=== PATIENT | female | born 1975 | race Caucasian/White ===

== ENCOUNTER 2025-01-30 06:05 | Inpatient (IN) | payer OTHER ==
[~2025-01-30] VITALS: Ht 165.1 cm; Wt 75.8 kg
[2025-01-30] MEDS ORDERED: NS 1,000 ML IV SCH ×3 (06:20→15:50)
[2025-01-30] MEDS ORDERED: Diazepam 5 MG / ML 2ML SYR IV ONE (06:20)
[2025-01-30 06:33] LABS: BASOPHILS ABSOLUTE AUTO 0.03 K/mm3 (0.00-0.23); BASOPHILS PERCENT AUTO 0 % (0-2); EOSINOPHILS ABSOLUTE AUTO 0.35 K/mm3 (0.00-0.68); EOSINOPHILS PERCENT AUTO 5 % (0-6); Hematocrit 41.1 % (33.0-51.0); Hemoglobin 13.6 g/dL (11.5-16.0); IMMATURE GRAN ABSOLUTE AUTO 0.05 K/mm3 (0.00-0.10); IMMATURE GRAN PERCENT AUTO 1 % (0-1); LYMPHOCYTES ABSOLUTE AUTO 1.46 K/mm3 (0.84-5.20); LYMPHOCYTES PERCENT AUTO 19 % (21-46); MONOCYTES ABSOLUTE AUTO 0.51 K/mm3 (0.16-1.47); MONOCYTES PERCENT AUTO 7 % (4-13); Mean Corpuscular HGB Conc 33.1 g/dL (31.5-36.5); Mean Corpuscular Volume 91 fL (80-100); NEUTROPHILS ABSOLUTE AUTO 5.33 K/mm3 (1.96-9.15); NEUTROPHILS PERCENT AUTO 69 % (41-73); NRBC ABSOLUTE 0.00 K/mm3 (0.00-0.02); NRBC Auto 0.0 /100 WBC (0.0-0.2); Platelet Count 220 K/mm3 (150-400); RDW Coefficient Variation 13.8 % (11.7-14.2); RDW Standard Deviation 46.2 fL (35.1-46.3)
[2025-01-30 06:53] LABS: Alanine Aminotransfer (ALT/SGP 14 U/L (12-78); Albumin, Blood 3.4 g/dL (3.4-5.0); Albumin/Globulin Ratio 1.0 (0.8-1.8); Anion Gap 9 mmol/L (3-11); Aspartate Aminotrans (AST/SGOT 10 U/L (12-37); Bilirubin, Total 0.4 mg/dL (0.1-1.0); Blood Urea Nitrogen 10 mg/dL (8-24); CO2, Blood 26 mmol/L (21-32); Calcium, Blood 8.9 mg/dL (8.5-10.1); Chloride, Blood 106 mmol/L (98-108); Creatinine, Blood 1.00 mg/dL (0.40-1.00); Ethanol (Alcohol), Blood, Med <3 mg/dL; Globulin, Blood 3.4 g/dL (2.2-4.0); Glucose, Blood 107 mg/dL (70-99); Potassium, Blood 3.7 mmol/L (3.5-5.5); Sodium, Blood 137 mmol/L (136-145); Total Protein, Blood 6.8 g/dL (6.4-8.2)
[2025-01-30] MEDS ORDERED: Magnesium Sulf 2 GM/Water 50ML 50 ML IV ONE (07:10)
[2025-01-30 09:57] LABS: U Amphetamine Screen Not Detected; U Barbituate Screen Not Detected; U Benzodiazapine Screen DETECTED; U Buprenorphine Screen Not Detected; U Cannabinoids Screen Not Detected; U Cocaine Screen Not Detected; U Methadone Screen Not Detected; U Methamphetamine Screen Not Detected; U Opiates Screen Not Detected; U Oxycodone Screen Not Detected; U Phencyclidine Screen Not Detected
[2025-01-30] MEDS ORDERED: Lidocaine 2% Jelly Uro-Jet TOP ONE (10:00)
[2025-01-30] MEDS ORDERED: Lidocaine HCl 4% 5 ML SDA INH ONE (10:05)
[2025-01-30] MEDS ORDERED: DILTIAZEM 24HR120 M4 PO (11:36)
[2025-01-30] MEDS ORDERED: FLUTICASONE-SA1 EAC9 INH (11:37)
[2025-01-30] MEDS ORDERED: NICORETTE4 M1 BC (11:39)
[2025-01-30] MEDS ORDERED: NICO21TP TOP (11:39)
[2025-01-30] MEDS ORDERED: QUET200 PO (11:41)
[2025-01-30] MEDS ORDERED: LITH300C PO (11:41)
[2025-01-30] MEDS ORDERED: PANTOPRAZOLE SO2010 PO (11:42)
[2025-01-30] MEDS ORDERED: ESTRADIOL (TWI1 EAC2 TD (11:43)
[2025-01-30] MEDS ORDERED: HYDPAM50 PO (11:44)
[2025-01-30] MEDS ORDERED: LOSARTAN POTASS25 M2 PO (11:45)
[2025-01-30] MEDS ORDERED: KLOR-CON 1010 ME9 PO (11:45)
[2025-01-30] MEDS ORDERED: TAMSULOSIN HCL0.4 M1 PO (11:46)
[2025-01-30] MEDS ORDERED: LEVETIRACETAM50014 PO (11:53)
[2025-01-30] MEDS ORDERED: Diazepam 5 MG / ML 2ML SYR IV PRN ×4 (12:05→12:10)
[2025-01-30] MEDS ORDERED: ROPINIROLE HCL1 MG PO (12:12)
[2025-01-30] MEDS ORDERED: PRAZOSIN HCL1 M2 PO (12:12)
[2025-01-30] MEDS ORDERED: ALBU90OI6 INH (12:13)
[2025-01-30] MEDS ORDERED: CYMBALTA20 M2 PO (12:13)
[2025-01-30] MEDS ORDERED: XARELTO20 M1 PO (12:14)
[2025-01-30] MEDS ORDERED: ACET500 PO (12:15)
[2025-01-30] MEDS ORDERED: TUMS500 MG PO (12:15)
[2025-01-30] MEDS ORDERED: CHLO25 PO (12:16)
[2025-01-30] MEDS ORDERED: FOLI1 PO (12:18)
[2025-01-30] MEDS ORDERED: CATAPRES0.1 MG PO (12:18)
[2025-01-30] MEDS ORDERED: GABA300 PO (12:20)
[2025-01-30] MEDS ORDERED: MELATONIN5 M1 PO (12:20)
[2025-01-30] MEDS ORDERED: ONDA4 PO (12:21)
[2025-01-30] MEDS ORDERED: METO25 PO (12:21)
[2025-01-30] MEDS ORDERED: B-1100 M1 PO (12:22)
[2025-01-30] MEDS ORDERED: TRAZ50 PO (12:22)
[2025-01-30] MEDS ORDERED: PROM25 PO (12:22)
[2025-01-30 12:24] VITALS: BP 112/84
--- NOTE | 2025-01-30 12:33 | NUR ---
PT ARRIVED TO UNIT AT APROX 1215 FROM ER. PT CIWA 5 UPON ARRIVAL TO UNIT. PT HAS NGT-PLACED TO LIS, SMALL AMT GREEN LIQUID OUT. LUNA PATENT , DRAINING CLEAR YELLOW URINE. PT IS ALERT, ORIENTED TO PLACE, SELF, EVENT-UNSURE OF YEAR AND DIFFICULTY RECALLING REASON FOR ADMISSION, UNABLE TO RECALL PLAN OF CARE. VSS UPON ARRIVAL TO UNIT. REPORT GIVEN TO PRIMARY RN.
--- NOTE | 2025-01-30 13:53 | NUR ---
pt remains confused but redirectable. pt was grabbing at her catheter tubing. educated on what it is for and pt was redirectable.
--- NOTE | 2025-01-30 14:19 | NUR ---
notified dr. russ of prolonged qtc per tele. no new orders at this time, pt resting in bed, denies cp.
[2025-01-30 14:30] VITALS: BP 109/83
--- NOTE | 2025-01-30 14:43 | NUR ---
VERBAL AUTH FROM PT TO RELEASE INFORMATION TO [facility]. UPDATE GIVEN TO KRUNAL @ [facility] DETOX.
[2025-01-30 16:03] VITALS: BP 105/77
[2025-01-30 16:04] VITALS: BP 105/77
--- NOTE | 2025-01-30 16:04 | NUR ---
while assessing patient she continues to feel like she is hearing things she stated that "He invited me to the [facility] party but never came to pick me up." I asked her who and she stated "the man in the [employer] just now." pt reports it is february [id number]. Call Dr. Herrera earlier to request iv fluids to start on patient awaiting orders at this time. pt conintues to score high on ciwas ranging from 20-15. she remains pleasant and can be redirected but has grabbed at her ngt and her schafer cath. bed alarm is on and seizure precautions in place. she reports previous seizures with some withdrawls.
--- NOTE | 2025-01-30 17:10 | NUR ---
PT CONTINUES TO SCORE HIGH ON THE CIWA'S MEDICATION PER EMAR. NEEDS FREQUENT REDIRECTION ABOUT REMAINING NPO AND THE REASON FOR THE TUBE IN HER NOSE. VERY FORGETFUL. REMAINS REDIRECTABLE AND PLEASANT. POWERGLIDE PLACED AT THIS TIME. FOLIC ACID AND THIAMINE STARTED
[2025-01-30 20:42] VITALS: BP 117/82
--- NOTE | 2025-01-30 20:59 | NUR ---
CIWA SCALE WAS COMPLETED BY VIDEO CLERK PRN
[2025-01-31] VITALS (19 sets, daily range): BP systolic 108–160; BP diastolic 90–125
--- NOTE | 2025-01-31 00:52 | NUR ---
CALL TO PROVIDER AFTER SPEAKING TO CHARGE NURSE REGARDING PT CIWA SCORES. PROVIDER WITH VERBAL ORDER TO TRANSFER TO PCU/ICU.
--- NOTE | 2025-01-31 01:16 | NUR ---
[facility] WAS WAITING AT THE DESK THIS RN SPOKE TO HIM. I EXPLAINED THAT THE PATIENT CAME TO THE FLOOR WITH ELEVATED CIWAS, AND THAT SHE VERY QUICKLY FALLS ASLEEP AFTER BEING MEDICATED. WHEN THE PATIENT IS AWAKE, HER CIWAS ARE >15. BABAK UPDATED THAT THIS HAS HAPPENED A FEW TIMES OVER. HE STATED THAT IF THE PATIENTS CIWAS REMAIN ELEVATED THIS EVENING, THAT HE WOULD PREFER A TRANSFER. 0000 CIWA SCORED AT 16, PT BEING MEDICATED BY QUINCY CRAWFORD.
--- NOTE | 2025-01-31 01:59 | NUR ---
REPORT TO TY PARIS AT [facility].
--- NOTE | 2025-01-31 02:13 | NUR ---
PT TO PCU 11 WITH STAFF
[2025-01-31 04:29] LABS: BASOPHILS ABSOLUTE AUTO 0.01 K/mm3 (0.00-0.23); BASOPHILS PERCENT AUTO 0 % (0-2); EOSINOPHILS ABSOLUTE AUTO 0.29 K/mm3 (0.00-0.68); EOSINOPHILS PERCENT AUTO 7 % (0-6); Hematocrit 35.1 % (33.0-51.0); Hemoglobin 11.3 g/dL (11.5-16.0); IMMATURE GRAN ABSOLUTE AUTO 0.01 K/mm3 (0.00-0.10); IMMATURE GRAN PERCENT AUTO 0 % (0-1); LYMPHOCYTES ABSOLUTE AUTO 0.94 K/mm3 (0.84-5.20); LYMPHOCYTES PERCENT AUTO 23 % (21-46); MONOCYTES ABSOLUTE AUTO 0.29 K/mm3 (0.16-1.47); MONOCYTES PERCENT AUTO 7 % (4-13); Mean Corpuscular HGB Conc 32.2 g/dL (31.5-36.5); Mean Corpuscular Volume 91 fL (80-100); NEUTROPHILS ABSOLUTE AUTO 2.47 K/mm3 (1.96-9.15); NEUTROPHILS PERCENT AUTO 62 % (41-73); NRBC ABSOLUTE 0.00 K/mm3 (0.00-0.02); NRBC Auto 0.0 /100 WBC (0.0-0.2); Platelet Count 177 K/mm3 (150-400); RDW Coefficient Variation 13.6 % (11.7-14.2); RDW Standard Deviation 45.0 fL (35.1-46.3)
[2025-01-31 04:49] LABS: Alanine Aminotransfer (ALT/SGP 11.0 U/L (12-78); Albumin, Blood 2.8 g/dL (3.4-5.0); Albumin/Globulin Ratio 1.0 (0.8-1.8); Anion Gap 5.0 mmol/L (3-11); Aspartate Aminotrans (AST/SGOT 10.0 U/L (12-37); Bilirubin, Total 0.4 mg/dL (0.1-1.0); Blood Urea Nitrogen 7.0 mg/dL (8-24); CO2, Blood 27.0 mmol/L (21-32); Calcium, Blood 8.0 mg/dL (8.5-10.1); Chloride, Blood 115.0 mmol/L (98-108); Creatinine, Blood 0.84 mg/dL (0.40-1.00); Globulin, Blood 2.8 g/dL (2.2-4.0); Glucose, Blood 82.0 mg/dL (70-99); Magnesium, Blood 2.2 mg/dL (1.6-2.4); Phosphorus, Blood 3.3 mg/dL (2.5-4.9); Potassium, Blood 3.6 mmol/L (3.5-5.5); Sodium, Blood 143.0 mmol/L (136-145); Total Protein, Blood 5.6 g/dL (6.4-8.2)
--- NOTE | 2025-01-31 05:57 | NUR ---
SHIFT SUMMARY. PATIENT TRANSFERED TO [facility] FROM [facility] FOR CIWA >15. PATIENT ARRIVED TO ROOM, DROWSY BUT EASILY AROUSABLE. PATIENT IS CONFUSED BUT ATTEMPTS TO ANSWER ORIENTATION QUESTIONS. PATIENT IS ANXIOUS-CIWA SCORES 15-16 THIS SHIFT, PATIENT IS NPO ON BOWEL REST WITH NG TUBE TO RIGHT NOSTRIL WITH LOW INTERMITTENT SUCTION DRAINING GREEN BILE-PATIENT TO HAVE PROCEDURE TODAY PER [facility] SURGEON TO SEE IF PATIENT WILL REQUIRE TRANSPORT TO [facility] FOR HIGHER LEVEL OF CARE-PER REPORT FROM SURGICAL NURSE PATIENT HAS A BED BUT WILL NEED TO KNOW IF PATIENT CHANGES TO ICU STATUS TO ACCOMODATE BED FOR ICU TRANSFER, PATIENT HAS BED JUST WAITING FOR RESULTS FROM TODAYS TEST FOR PLAN OF CARE. PATIENT HAS RIGHT UPPER ARM POWERGLIDE THAT FLUSHES AND DRAWS WITH EASE. PATIENT HAVING SOME HALLUCINATIONS, THINKING "BOYFRIEND IS IN THE HOSPITAL AND THAT SHE TALKED ON THE PHONE WITH WINNIE MANCILLA". PATIENT RESTING OFF AND ON T/O NIGHT-VERY ANXIOUS T/O NIGHT WHEN AWAKE. PATIENT ASKS SEVERAL TIMES FOR PURSE-PURSE IS AT [facility]-CALLED AND CONFIRMED WITH [facility] BY BRIA CRAWFORD. PATIENT MEDICATED WITH VALLIUM PER ORDERS FOR CIWA SCORE >15. PATIENTS BED IS LOCKED IN THE LOWEST POSITION WITH CALL LIGHT IN REACH. CARE IS ONGOING.
[2025-01-31] MEDS ORDERED: D5W-1/2NS 1,000 ML IV SCH ×2 (07:00→20:00)
[2025-01-31] MEDS ORDERED: Ondansetron HCl 2 MG / ML 2ML Vial IV PRN (08:40)
--- NOTE | 2025-01-31 10:31 | NUR ---
AM NOTE: ASSUMED CARE OF PT THIS AM AFTER RECEIVING REPORT F/ TY ALANIZ AT APPROX 0715. PT IS ALERT, ORIENTED TO SELF, SOME SITUATION AND OCCASIONALLY LOCATION. PT INTERMITTENTLY BELIEVES SHE IS STILL AT [facility] (PHONE CALL TO [facility] BY THIS RN TO CONFIRM THAT HER BELONGINGS ARE STILL THERE AND THEY SHOULD BE DELIVERED TO PT's ROOM THIS AFTERNOON) OR AT THE HOSPITAL IN HER HOME TOWN ([place]). CIWAs BEING MONITORED AND PT MEDICATED PER EMAR, SEIUZURE PADS IN PLACE. PT HAS BEEN TO/FROM IMAGING DEPT FOR INITIATION OF GASTROGRAFIN STUDY, NG TUBE CURRENTLY DISCONNECTED F/SUCTION PER ONGOING STUDY. PT DENIES SOB, O2 SATS >95% ON RA. PT DENIES CP, SR ON MONITOR, RATE 70s-80s. PT DENIES NAUSEA. 1:[address] TO PREVENT PULLING OF LINES OR EXITING BED UNSUPERVISED. PT CURRENTLY RESTING QUIETLY IN BED, WILL CONTINUE TO MONITOR.
--- NOTE | 2025-01-31 18:46 | NUR ---
SHIFT SUMMARY/TRANSFER: PT's CONFUSION CONTINUES (SEE PREVIOUS NOTE), WILL TALK ABOUT WANTING TO LEAVE, REQUESTING TO "GO ACROSS THE STREET TO SMOKE" OR "A DR PEPPER AND CHOCOLATE". PT HAS BEEN REDIRECTABLE UP UNTIL APPROXIMATELY THE LAST HOUR AND IS NOT RESPONDING TO PRN MEDICATIONS FOR AGITATION. PT HAS BEEN STANDING UP AND PULLING AT LINES DESPITE REDIRECTION ATTEMPTS. PROVIDER NOTIFIED AND PT HAS BEEN TRANSFERED TO ICU. PT CONTINUES PENDING TRANSFER FOR HERNIA REPAIR. NGT REMAINS IN PLACE TO R NARE, LOW INT SUCTION, DRAINING GREEN LIQUID. PT WAS TOLERATING ICE CHIPS OK'd PER DR WATTS PRIOR TO ICU TRANSFER. REPORT GIVEN TO TY FREED TO ASSUME CARE OF PT.
[2025-01-31] MEDS ORDERED: Haloperidol Lactate Inj. 5 MG/ML Injection IV ONE (21:05)
[2025-01-31] MEDS ORDERED: DiphenhydrAMINE HCl 50 MG/ML 1ML Vial IV ONE (21:05)
--- NOTE | 2025-01-31 21:20 | NUR ---
MD NOTIFICATION/PT STATUS UPDATE REPORT RECEIVED FROM DAY RN. PT CALM AT BEGINING OF SHIFT AND REDIRECTABLE. SHE QUICKLY ESCALATED INTO ETOH WITHDRAWAL SYMPTOMS REQUIRING PRECEDEX GTT, VALIUM IV, ATIVAN PO. HOSPITALIST JOSE NOTIFIED OF BEHAVIOR ESCALATION AND NECESSARY MEDICATION GIVEN. ORDER RECEIVED FOR BENADRYL AND HALDOL IV WHICH WERE GIVEN. PT STATING WANTS TO LEAVE, NURSING STAFF ARE LIARS, DOING ILLEGAL BEHAVIOR AND WE ARE ALL GOING TO CORRECTION. LOCKING RESTRAINTS WERE INITIATED AFTER PT PULLING OUT OF SOFT RESTRAINTS. NOW PULLING AGAINST LOCKED RESTRAINTS. PT ALERT TO SELF ONLY, REDIRECTED CONTINUOUSLY. THRASHING IN BED, TRYING TO GET OOB. NOT CURRENTLY REDIRECTABLE. SELF D/C'D NGT. HOSPITALIST OK WITH LEAVING OUT TONIGHT AND CAN GIVE SMALL SIPS AND CHIPS. WILL CONTINUE TO MONITOR. ROOFER APPLICATOR AT BS.
[2025-02-01] VITALS (57 sets, daily range): BP systolic 102–177; BP diastolic 68–117
--- NOTE | 2025-02-01 00:52 | NUR ---
HOSPITALIST NOTIFICATION/PT STATUS UPDATE HOSPITALIST JOSE ADULT SERVICES LIBRARIAN NOTIFIED OF CHANGE IN PT RESPIRATORY STATUS. O2 REQUIREMENT INCREASED, DESATTING TO HIGH 80'S. SWITCHED TO SIMPLE MASK 12 L, 02 SAT NOT RECOVERING. ORDERS RECEIVED FOR VBG DRAW AND SWITCH TO HEATED HI-FLOW.
[2025-02-01 01:02] LABS: pH Blood Venous 7.35 (7.34-7.37)
[2025-02-01] MEDS ORDERED: Albuterol 2.5 MG/3 ML VIAL ONE (01:19)
[2025-02-01] MEDS ORDERED: Ipratropium/Albuterol SulF 2.5-0.5MG/3 ML Amp INH PRN (01:20)
[2025-02-01] MEDS ORDERED: Albuterol 2.5 MG/3 ML VIAL INH PRN (01:30)
--- NOTE | 2025-02-01 01:35 | NUR ---
HOSPITALIST JOSE UPDATED AGAIN ON RESPIRATORY STATUS, PCXR ORDERED, HEATED HI-FLOW AT 50L/70%.
--- NOTE | 2025-02-01 02:10 | NUR ---
HOSPITALIST NOTIF DR HILLIARD UPDATED ON PT STATUS. HR AT 49/50 WITH PRECEDEX AT 0.4 MCG, ADDITIONAL VALIUM 2MG DOSE GIVEN FOR BREAKTHROUGH AGITATION WHEN PRECEDEX BRIEFLY TITRATED DOWN FOR LOW HR. O2 SAT NOW 98% ON 50L/70% HEATED HI-FLOW. NO NEW ORDERS GIVEN AT THIS TIME. WILL CONTINUE TO MONITOR.
[2025-02-01] MEDS ORDERED: HydrALAZINE HCl 20 MG / ML 1ML Vial IV PRN (03:40)
--- NOTE | 2025-02-01 03:40 | NUR ---
MD NOTIFY DR HILLIARD UPDATED WITH PT BP 168/104. ORDER RECEIVED FOR HYDRALAZINE FOR SBP>180 OR DBP>120. WILL CONTINUE TO MONITOR.
[2025-02-01 03:57] LABS: BASOPHILS ABSOLUTE AUTO 0.01 K/mm3 (0.00-0.23); BASOPHILS PERCENT AUTO 0 % (0-2); EOSINOPHILS ABSOLUTE AUTO 0.24 K/mm3 (0.00-0.68); EOSINOPHILS PERCENT AUTO 5 % (0-6); Hematocrit 36.3 % (33.0-51.0); Hemoglobin 12.2 g/dL (11.5-16.0); IMMATURE GRAN ABSOLUTE AUTO 0.01 K/mm3 (0.00-0.10); IMMATURE GRAN PERCENT AUTO 0 % (0-1); LYMPHOCYTES ABSOLUTE AUTO 0.93 K/mm3 (0.84-5.20); LYMPHOCYTES PERCENT AUTO 19 % (21-46); MONOCYTES ABSOLUTE AUTO 0.29 K/mm3 (0.16-1.47); MONOCYTES PERCENT AUTO 6 % (4-13); Mean Corpuscular HGB Conc 33.6 g/dL (31.5-36.5); Mean Corpuscular Volume 90 fL (80-100); NEUTROPHILS ABSOLUTE AUTO 3.47 K/mm3 (1.96-9.15); NEUTROPHILS PERCENT AUTO 70 % (41-73); NRBC ABSOLUTE 0.00 K/mm3 (0.00-0.02); NRBC Auto 0.0 /100 WBC (0.0-0.2); Platelet Count 189 K/mm3 (150-400); RDW Coefficient Variation 13.2 % (11.7-14.2); RDW Standard Deviation 43.3 fL (35.1-46.3)
[2025-02-01 04:24] LABS: Alanine Aminotransfer (ALT/SGP 12.0 U/L (12-78); Albumin, Blood 2.8 g/dL (3.4-5.0); Albumin/Globulin Ratio 0.9 (0.8-1.8); Anion Gap 8.0 mmol/L (3-11); Aspartate Aminotrans (AST/SGOT 10.0 U/L (12-37); Bilirubin, Total 0.3 mg/dL (0.1-1.0); Blood Urea Nitrogen 5.0 mg/dL (8-24); CO2, Blood 26.0 mmol/L (21-32); Calcium, Blood 8.1 mg/dL (8.5-10.1); Chloride, Blood 112.0 mmol/L (98-108); Creatinine, Blood 0.7 mg/dL (0.40-1.00); Globulin, Blood 3.1 g/dL (2.2-4.0); Glucose, Blood 152.0 mg/dL (70-99); Potassium, Blood 3.3 mmol/L (3.5-5.5); Sodium, Blood 143.0 mmol/L (136-145); Total Protein, Blood 5.9 g/dL (6.4-8.2)
--- NOTE | 2025-02-01 04:45 | NUR ---
MD NOTIFY DR HILLIARD CALLED WITH LOW K+ 3.3 AND CONTINUED AGITATION WITH PRECEDEX GTT. ORDERS RECEIVED FOR K+ REPLACEMENT AND ZYPREXA IM DOSE X1.
--- NOTE | 2025-02-01 05:29 | NUR ---
SHIFT SUMMARY PT LABILE T/O SHIFT, ON PRECEDEX GTT, TITRATED UP AND DOWN PER CIWA SYMPTOMS, ALONG WITH BREAKTHROUGH DOSES OF VALIUM AND ONE TIME DOSES OF BENADRYL AND HALDOL WERE GIVEN. MULT ATTEMPTS OOB, RESTRAINED, REDIRECTION UNSUCCESSFUL, REMAINS CONFUSED WITH PERIODIC AUDITORY AND VISUAL HALLUCINATIONS. UPDATED T/O SHIFT, SEE PREVIOUS NOTES FOR DETAILS. DR HILLIARD UPDATED AT 0445, BP STILL HIGH, BUT PRN HYDRALAZINE PARAMETER NOT MET. VALIUM NOT EFFECTIVE LAST 2 DOSES. ORDER FOR ONE TIME ZYPREXA DOSE AND WAS GIVEN. PT MORE CALM AT THIS TIME AFTER ZYPREXA DOSE. BP 168/113, HR 84, O2 SAT 100% ON HEATED HI-FLOW NC. WILL UPDATE DAY RN WITH LATEST STATUS.
[2025-02-01] MEDS ORDERED: NS 250 ML IV PRN (09:00)
[2025-02-01] MEDS ORDERED: Diazepam 5 MG / ML 2ML SYR IV SCH (12:30)
--- NOTE | 2025-02-01 12:46 | NUR ---
PHYSICIAN NOTIFICATION / STATUS UPDATE PATIENT INITIALLY SHOWED SIGNS OF SOME IMPROVEMENT - WHILE CONFUSED WITH HIGH CIWA SCORE, PT WAS CALM, COOPERATIVE, AND AGREEABLE TO TREATMENT. AROUND 1100 PT BEHAVIORS ESCALATED - PT BECAME VERBALLY VIOLENT AND AGGRESSIVE THREATENING TO HARM RN AND BEGAN EXPERIENCING WORSENING AV HALLUCINATION. PT STRESS AND ANXIETY ALSO INCREASING. DR. MORE NOTIFIED OF BEHAVIORS DESPITE PRN ADMINISTRATION AND PRECEDEX TITRATION. DR. MORE CAME TO BEDSIDE FOR EVALUATION AND ADDITIONAL ORDERS WERE PLACED FOR VALIUM. ADDITIONAL 5MG IV VALIUM ADMINISTERED ORDERED. PT REMAINS VITALLY STABLE.
[2025-02-01 14:45] LABS: pH Blood Venous 7.41 (7.34-7.37)
--- NOTE | 2025-02-01 17:02 | NUR ---
SHIFT SUMMARY PT LIGHTLY SEDATED SINCE AROUND 1400. TEMPERATURE 97.9, VS STABLE WITH IMPROVED RESPIRATORY RATE - PT STAYED IN THE HIGH 30S-40 MOST OF THE DAY BUT IS NOW SLEEPING WITH RR OF 24/MIN. AUDIBLE SNORING, POSSIBLE KUN - 4LNC PLACED ON PT WITH ETCO2 MONITOR. PT NSR, WITH RARE TO OCCASIONAL PVC'S. PT VERBALLY CLEARED FOR CLEAR LIQUIDS BY DR. MORE. ORAL INTAKE OF APPLE JUICE AND WATER THIS SHIFT. BM X2, BROWN, LIQUID, LOOSE. 1600 ML UOP VIA LUNA CATHETER, YELLOW/HAZY. POWERGLIDE X2 ROSMERY/ARIANNA. PRECEDEX AND D51/2NS INFUSING PER OCT. SAFETY, COMFORT, HYGIENE ADDRESSED. LUNA CARE, CHG BATH, LINEN CHANGE PERFORMED.
--- NOTE | 2025-02-01 18:40 | NUR ---
STATUS UPDATE PRECEDEX DECREASED AND SUBSEQUENTLY PAUSED D/T INCREASED ECTOPY, PROLONGED QT, AND OVER-SEDATION. PT CURRENTLY MINIMALLY AROUSES TO PAINFUL STIMULI. VS OTHERWISE STABLE, COUGH/GAG INTACT, ORAL CARE PERFORMED.
--- NOTE | 2025-02-01 20:04 | NUR ---
[facility] of Care/Assessment Bedside report completed with day shift nurse. Pt asleep but arousable to minimal stimulation. No acute distress noted, VS stable, D5 1/2 NS infusing per MAR, Precedex on pause 2* sedation and increased ectopy. Currently NSR w/ occasional PVCs. Colindres in place, patent/draining. YADIRA IVs flushed, blood draw noted. Sitter at bedside. NG tube placed in left nare per order, XRAY verified, hospitalist notified.
[2025-02-01] MEDS ORDERED: Gabapentin 250 MG/5 ML ORAL SYRINGE PT SCH (21:00)
[2025-02-01] MEDS ORDERED: LevETIRAcetam 100 MG/ML 5ML ORAL SYR PT SCH (21:00)
--- NOTE | 2025-02-01 23:00 | NUR ---
PATIENT TRANSFER TO [facility] Transfer of care to EMS for transport to [facility]. Patient alert and oriented to self, VS stable, no acute distress noted. Medications given per eMAR and CIWA scale. Patient left at 2200. Personal belongings sent, walker and meds left here and in and pharmacy. SO Sriram to be notified and given Trauma ICU phone number with update on pt status.
[2025-02-02] MEDS ORDERED: DULoxetine HCL 20 MG Cap DR PO SCH (09:00)
== END 2025-02-01 22:00 | disposition short-term general hospital (02) | DRG 391 ==
LOC: ER 06:05 → SURS 06:06 → PCU 01-31 02:07 → ICUE 01-31 10:25 → PCU 01-31 10:25 → ICUE 01-31 18:46
PROVIDERS: Student in an Organized Health Care Education/Training Program; ADMIT Family Medicine
PROC: 0D9670Z Drainage of Stomach with Drainage Device, Via Natural or Artificial Opening (ICD-10-PCS; principal; 2025-01-30)
PROC: 5A0935A Assistance with Respiratory Ventilation, Less than 24 Consecutive Hours, High Flow/Velocity Cannula (ICD-10-PCS; 2025-02-01)
DX: K44.0 Diaphragmatic hernia with obstruction, without gangrene (principal); G92.8 Other toxic encephalopathy; J96.91 Respiratory failure, unspecified with hypoxia; K31.1 Adult hypertrophic pyloric stenosis; F10.232 Alcohol dependence with withdrawal with perceptual disturbance; I10 Essential (primary) hypertension; N32.89 Other specified disorders of bladder; I48.91 Unspecified atrial fibrillation; E87.6 Hypokalemia; T42.75XA Adverse effect of unspecified antiepileptic and sedative-hypnotic drugs, initial encounter; Z88.8 Allergy status to other drugs, medicaments and biological substances; Z79.51 Long term (current) use of inhaled steroids; Z78.1 Physical restraint status
CPT/HCPCS: 51702; 71045; 71046; 71260; 74177; 74250; 80053; 80320; 82803; 82947; 83690; 83735; 84100; 84484; 85025; 93005; 93010; 94640; 94664; 94762; 96361-59; 96365-59; 96375-59; 99285-25; A9270; C1751; G0378; J1200; J1630; J1953; J2003; J2405; J3360; J3411; J3475; J3480; J7030; J7042; J7050; Q9967